=== PATIENT | male | born 1970 | race American Indian/Alaskan Native ===

== ENCOUNTER 2016-11-11 17:22 | Emergency (ER) | payer SELFPAY ==
[2016-11-11 18:34] LABS: Anion Gap 19 mmol/L; Blood Urea Nitrogen 11 mg/dL (9-20); Calcium 9.1 mg/dL (8.4-10.2); Carbon Dioxide 23 mmol/L (22-30); Chloride 100.7 mmol/L (98-107); Glucose 103 mg/dL (75-100); Potassium 4.2 mmol/L (3.6-5.0); Sodium 138 mmol/L (137-145)
[2016-11-11 18:38] LABS: Basophils % (Auto) 1.3 % (0.0-1.8); Eosinophils % (Auto) 13.8 % (0.0-4.3); Hematocrit 51.7 % (35.5-45.6); Hemoglobin 16.8 gm/dl (11.8-15.2); Mean Corpuscular HGB Conc 33 % (32-34); Mean Corpuscular Hemoglobin 30 pg (28-32); Mean Corpuscular Volume 93 fl (84-94); Platelet Count 244 K/mm3 (140-440); Red Blood Count 5.55 M/mm3 (3.65-5.03); Red Cell Distribution Width 14.3 % (13.2-15.2); White Blood Count 8.2 K/mm3 (4.5-11.0)
[2016-11-11] MEDS ORDERED: DUONEB 0.5 MG-3 MG/3 ML SOLN IH ONE (22:04)
--- NOTE | 2016-11-11 22:55 | Emergency Department Report ---
ED Shortness of Breath HPI - General Chief Complaint: Dyspnea/Respdistress Stated Complaint: VIKKI Time Seen by Provider: 11/11/16 22:47 Source: patient, RN notes reviewed, old records reviewed Mode of arrival: Ambulatory Limitations: No Limitations - History of Present Illness Initial Comments: This is a 46-year-old male. He is previously unknown to me. He does not have a primary care doctor. He has no chronic medical conditions. He no longer consumes tobacco. He presents to the ER complaining of shortness of breath. Shortness of breath started on Wednesday. It increases with physical exertion. Positive cough with mucus. No chest pain. No leg pain. No leg swelling. Works as a long-distance team truck driver. No history of hematemesis, bright red blood per rectum, or intracranial hemorrhage. Patient admits to left arm twitching and cramping, but denies severe pain. MD Complaint: shortness of breath, cough -: Gradual Severity: moderate Consistency: intermittent Improves With: rest Worsens With: exertion Context: recent URI Associated Symptoms: cough - Related Data Previous Rx's Medication Instructions Recorded Last Taken Type Albuterol Sulfate [Proair 90 mcg IH Q4HR PRN #2 aer.pow.ba 11/11/16 Unknown Rx Respiclick] predniSONE [Deltasone] 40 mg PO QDAY #8 tab 11/11/16 Unknown Rx Ipratropium [facility] [Atrovent Hfa] 12.9 gm IH Q4HR #2 hfa.aer.ad 11/12/16 Unknown Rx Allergies Allergy/AdvReac Type Severity Reaction Status Date / Time penicillin Allergy Swelling Verified 11/11/16 17:38 ED Review of Systems ROS: Stated complaint: VIKKI Other details as noted in HPI Constitutional: denies: malaise Eyes: denies: vision change Respiratory: shortness of breath Cardiovascular: dyspnea on exertion Gastrointestinal: denies: vomiting Genitourinary: denies: dysuria Musculoskeletal: denies: back pain Skin: denies: lesions Neurological: denies: headache Psychiatric: denies: anxiety ED Past Medical Hx - Past Medical History Hx COPD: Yes - Surgical History Past Surgical History?: No - Social History Smoking Status: Former Smoker Substance Use Type: Alcohol - Medications Home Medications: Home Medications Medication Instructions Recorded Confirmed Last Taken Type Albuterol Sulfate [Proair 90 mcg IH Q4HR PRN #2 aer.pow.ba 11/11/16 Unknown Rx Respiclick] predniSONE [Deltasone] 40 mg PO QDAY #8 tab 11/11/16 Unknown Rx Ipratropium [facility] [Atrovent Hfa] 12.9 gm IH Q4HR #2 hfa.aer.ad 11/12/16 Unknown Rx ED Physical Exam - General Limitations: No Limitations General appearance: alert, in no apparent distress - Head Head exam: Present: atraumatic, normocephalic - Eye Eye exam: Present: normal appearance, PERRL, EOMI. Absent: nystagmus - ENT ENT exam: Present: normal exam, normal orophraynx, mucous membranes moist, normal external ear exam - Neck Neck exam: Present: normal inspection, full ROM. Absent: tenderness, meningismus - Respiratory Respiratory exam: Present: normal lung sounds bilaterally. Absent: respiratory distress, wheezes, rales, rhonchi, stridor, chest wall tenderness - Cardiovascular Cardiovascular Exam: Present: regular rate, normal rhythm, normal heart sounds. Absent: bradycardia, tachycardia, irregular rhythm, systolic murmur, diastolic murmur, rubs, gallop - GI/Abdominal GI/Abdominal exam: Present: soft, normal bowel sounds. Absent: distended, tenderness, guarding, rebound, rigid, pulsatile mass - Rectal Rectal exam: Present: deferred - Extremities Exam Extremities exam: Present: normal inspection, full ROM, normal capillary refill. Absent: tenderness, pedal edema, joint swelling, calf tenderness - Back Exam Back exam: Present: normal inspection, full ROM. Absent: tenderness, CVA tenderness (R), CVA tenderness (L), muscle spasm, paraspinal tenderness, vertebral tenderness - Neurological Exam Neurological exam: Present: alert, oriented X3, normal gait, other (Extraocular movements intact. Tongue midline. No facial droop. Facial sensation intact to light touch in the V1, V2, V3 distribution bilaterally. 5 and 5 strength in 4 extremities.. Sensation is intact to light touch in 4 extremities.). Absent : motor sensory deficit - Psychiatric Psychiatric exam: Present: normal affect, normal mood - Skin Skin exam: Present: warm, dry, intact, normal color. Absent: rash ED Course Vital Signs 11/11/16 11/11/16 11/11/16 17:35 21:55 22:15 Temperature 98.5 F Pulse Rate 79 86 Pulse Rate [ 78 Anterior Bilateral Throughout] Pulse Rate [ 78 Posterior Bilateral Throughout] Respiratory 20 20 Rate Respiratory 20 Rate [Anterior Bilateral Throughout] Respiratory 20 Rate [Posterior Bilateral Throughout] Blood Pressure 156/100 182/106 Blood Pressure [Right] O2 Sat by Pulse 95 96 Oximetry 11/11/16 11/11/16 11/11/16 22:28 22:48 22:49 Temperature 98.3 F Pulse Rate 70 Pulse Rate [ 77 Anterior Bilateral Throughout] Pulse Rate [ 77 Posterior Bilateral Throughout] Respiratory 22 Rate Respiratory 20 Rate [Anterior Bilateral Throughout] Respiratory 20 Rate [Posterior Bilateral Throughout] Blood Pressure Blood Pressure 183/93 [Right] O2 Sat by Pulse 95 96 Oximetry 11/12/16 11/12/16 00:00 00:20 Temperature 97.9 F 98.7 F Pulse Rate 82 89 Pulse Rate [ Anterior Bilateral Throughout] Pulse Rate [ Posterior Bilateral Throughout] Respiratory 18 18 Rate Respiratory Rate [Anterior Bilateral Throughout] Respiratory Rate [Posterior Bilateral Throughout] Blood Pressure Blood Pressure 157/93 157/79 [Right] O2 Sat by Pulse 99 99 Oximetry - Reevaluation(s) Reevaluation #1: 11/11/16 23:45 Differential diagnosis: Bronchitis, asthma, pneumonia, pulmonary embolus Assessment and plan: 46-year-old male with shortness of breath since Wednesday. He is not wheezing on my examination. She is a nurse and respiratory therapist documented that the patient was wheezing. He is given nebulizer treatment prior to my evaluation. He is a long-distance team truck driver. Given this, a d-dimer will be sent to risk stratify the patient for pulmonary embolus. However, he is perc negative, and given clinical history of cough and documented wheezing, most likely has bronchitis. He has no chest pain, I highly doubt acute coronary syndrome, a troponin was sent, and was negative. As per the [employer] clinical policy, myocardial infarction may be excluded with 1 set of troponins if symptoms have been present for greater than 8 hours. His EKG does demonstrate poor R-wave progression, this is morphologically unchanged from her prior EKG. The patient to be low risk by MALVIN score, low risk by Heart score, he can follow up with a primary care doctor or spring fitter helper for his abnormal EKG which is chronic since May 2015 11/11/16 23:48 Reevaluation #2: 11/11/16 23:57 Troponins are negative 2. The patient is able to ambulate without significant desaturation. A repeat EKG is morphologically unremarkable and unchanged from prior. He will be discharged with albuterol. He is instructed to follow-up with either outpatient primary care or cardiology. He will discharge at this time. Return precautions are extensively reviewed. D-dimer is negative as well. ED Medical Decision Making - Lab Data Result diagrams: 11/11/16 18:00 11/11/16 18:00 - EKG Data -: EKG Interpreted by Me EKG shows normal: sinus rhythm, axis, intervals Rate: normal - EKG Data When compared to previous EKG there are: no significant change Interpretation: unchanged when compared t 11/11/16 23:48 normal sinus, 73 bpm, normal intervals, normal axis, poor R-wave progression, appears unchanged from prior to prior EKG from 05/07/2015. Critical care attestation.: If time is entered above; I have spent that time in minutes in the direct care of this critically ill patient, excluding procedure time. ED Disposition Clinical Impression: History of wheezing Disposition: DISCHARGED TO HOME OR SELFCARE Is pt being admited?: No Does the pt Need Aspirin: No Condition: Good Instructions: Acute Bronchitis (ED), Hypertension (ED) Additional Instructions: Take the medications as directed. Follow up with a primary care doctor or spring fitter helper within the next week. EKG demonstrated nonspecific abnormalities, these are chronic and have been present since 2014. Dr. Nguyen is a local primary care doctor. Doctor's Kay/ Manohar are local hearing instrument specialist. Blood pressure was very elevated in the emergency department. This should be followed up by a primary care doctor or spring fitter helper within the recommended timeframe. Long- term complications of hypertension/elevated blood pressure includes stroke, heart attack, disability, , paralysis, permanent loss of quality of life. Return to the ER right away with fevers or chills, chest pain, no different shortness of breath, intractable nausea or vomiting, inability to tolerate liquid feeds. Prescriptions: Albuterol Sulfate [Proair Respiclick] 90 mcg IH Q4HR PRN #2 aer.pow.ba PRN Reason: Wheezing Ipratropium Endeavor [Atrovent Hfa] 12.9 gm IH Q4HR #2 hfa.aer.ad predniSONE [Deltasone] 40 mg PO QDAY #8 tab Referrals: PRIMARY CARE, [Primary Care Provider] - 3-5 Days ANDER NGUYEN MD [Staff Physician] - 3-5 Days FRANK HINDS MD [Staff Physician] - 3-5 Days ALEJANDRA TRIVEDI MD [Staff Physician] - 3-5 Days
[2016-11-11 23:38] LABS: INR 1.05 (0.87-1.13)
[2016-11-11 23:39] LABS: Partial Thromboplastin Time 27.7 Sec. (24.2-36.6)
[2016-11-11] MEDS ORDERED: DELTASONE PO ONE (23:59)
[2016-11-12 00:47] VITALS: BP 157/79
--- NOTE | 2016-11-12 08:21 | XRay Report ---
Chest 2 views. Findings: The heart and pulmonary vessels are normal. The lungs are clear. There is no pleural fluid. There are multiple old rib fractures in the right lower thoracic cage. No acute rib fractures are seen. Impression: No acute findings.
== END 2016-11-12 00:47 | disposition home or self-care (01) ==
LOC: ED 17:22
DX: R06.02 Shortness of breath (principal); R06.2 Wheezing; R05 Cough; J44.9 Chronic obstructive pulmonary disease, unspecified
CPT/HCPCS: 36415; 71020; 80048; 84484; 85025; 85379; 85610; 85730; 93005; 93010; 94640; 99284

== ENCOUNTER 2019-10-31 11:10 | Emergency (ER) | payer SELFPAY ==
--- NOTE | 2019-10-31 12:56 | Event Note ---
ED Screening Note Date of service: 10/31/19 Time: 12:54 ED Screening Note: 49 y o male with no pmh presents with worsening sob x 1 week with no relief productive coughing up phlegm non smoker no COPD/ asthma This initial assessment/diagnostic orders/clinical plan/treatment(s) is/are subject to change based on patients health status, clinical progression and re- assessment by fellow clinical providers in the ED. Further treatment and workup at subsequent clinical providers discretion. Patient/guardian urged not to elope from the ED as their condition may be serious if not clinically assessed and managed. Initial orders include: cxr, acc eval
--- NOTE | 2019-10-31 13:22 | XRay Report ---
CHEST 2 VIEWS INDICATION: prod cough. COMPARISON: Chest x-ray from 11/11/2016 FINDINGS: Support devices: None. Heart: Within normal limits. Lungs/pleura: No acute air space or interstitial disease. No pneumothorax. Additional findings: None. IMPRESSION: 1. No acute findings. Signer Name: Teo Gandhi MD Signed: 10/31/2019 1:18 PM Workstation Name: [id number]
[2019-10-31] MEDS ORDERED: IPRATROPIUM 0.02% NEBU 2.5 ML IH ONE (16:07)
[2019-10-31] MEDS ORDERED: dexAMETHasone 20 MG/5 ML VIAL IM ONE (16:07)
[2019-10-31] MEDS ORDERED: ALBUTEROL 2.5 MG/3 ML NEBU IH ONE (16:07)
--- NOTE | 2019-10-31 16:39 | Emergency Department Report ---
ED Shortness of Breath HPI - General Chief Complaint: Dyspnea/Respdistress Stated Complaint: VIKKI Time Seen by Provider: 10/31/19 15:36 Source: patient Mode of arrival: Ambulatory Limitations: No Limitations - History of Present Illness Initial Comments: This is a 49-year-old male nontoxic, well nourished in appearance, no acute signs of distress presents to the ED with c/o of productive cough, shortness of breathe, rhinorrhea, nasal congestion x2 weeks. Patient describes productive cough as yellow mucus production. Patient denies any sick contacts. Patient denies any recent travels, long car, recent hospital stays. Patient denies any calf pain or calf tenderness. Patient denies any chest pain, fever, chills, nausea, vomiting, hemoptysis, numbness, tingling, headache or stiff neck. Allergies includes PCN. Patient stated has history of similar episodes and develops this condition during bronchitis. MD Complaint: shortness of breath, cough -: week(s) (2) Severity: mild Pain Scale: 0 Consistency: constant Improves With: nothing Worsens With: nothing Associated Symptoms: cough, sputum production - Related Data Home Oxygen Therapy: No Previous Rx's Medication Instructions Recorded Last Taken Type Albuterol Sulfate [Proair 90 mcg IH Q4HR PRN #2 aer.pow.ba 11/11/16 Unknown Rx Respiclick] predniSONE [Deltasone] 40 mg PO QDAY #8 tab 11/11/16 Unknown Rx Ipratropium [facility] [Atrovent Hfa] 12.9 gm IH Q4HR #2 hfa.aer.ad 11/12/16 Unknown Rx Albuterol INH(or & Nicu Only) 2 puff IH QID PRN #8.5 gram 10/31/19 Unknown Rx [ProAir HFA Inhaler] Azithromycin [Zithromax Z-JAZMYNE] 250 mg PO DAILY #6 tablet 10/31/19 Unknown Rx Prednisone [predniSONE 10 mg 10 mg PO .TAPER #1 tab.ds.pk 10/31/19 Unknown Rx (6-Day Pack, 21 Tabs)] Allergies Allergy/AdvReac Type Severity Reaction Status Date / Time penicillin Allergy Swelling Verified 11/11/16 17:38 ED Review of Systems ROS: Stated complaint: VIKKI Other details as noted in HPI Constitutional: denies: chills, fever Eyes: denies: eye pain, eye discharge, vision change ENT: congestion. denies: ear pain, throat pain Respiratory: shortness of breath, wheezing Cardiovascular: denies: chest pain, palpitations Endocrine: no symptoms reported Gastrointestinal: denies: abdominal pain, nausea, diarrhea Genitourinary: denies: urgency, dysuria Musculoskeletal: denies: back pain, joint swelling, arthralgia Skin: denies: rash, lesions Neurological: denies: headache, weakness, paresthesias Psychiatric: denies: anxiety, depression Hematological/Lymphatic: denies: easy bleeding, easy bruising ED Past Medical Hx - Past Medical History Previous Medical History?: Yes Hx COPD: No (pt states i do not have COPD) - Surgical History Past Surgical History?: No - Social History Smoking Status: Former Smoker Substance Use Type: None - Medications Home Medications: Home Medications Medication Instructions Recorded Confirmed Last Taken Type Albuterol Sulfate [Proair 90 mcg IH Q4HR PRN #2 aer.pow.ba 11/11/16 Unknown Rx Respiclick] predniSONE [Deltasone] 40 mg PO QDAY #8 tab 11/11/16 Unknown Rx Ipratropium [facility] [Atrovent Hfa] 12.9 gm IH Q4HR #2 hfa.aer.ad 11/12/16 Unknown Rx Albuterol INH(or & Nicu Only) 2 puff IH QID PRN #8.5 gram 10/31/19 Unknown Rx [ProAir HFA Inhaler] Azithromycin [Zithromax Z-JAZMYNE] 250 mg PO DAILY #6 tablet 10/31/19 Unknown Rx Prednisone [predniSONE 10 mg 10 mg PO .TAPER #1 tab.ds.pk 10/31/19 Unknown Rx (6-Day Pack, 21 Tabs)] ED Physical Exam - General Limitations: No Limitations General appearance: alert, in no apparent distress - Head Head exam: Present: atraumatic, normocephalic - Eye Eye exam: Present: normal appearance - Neck Neck exam: Present: normal inspection, full ROM. Absent: tenderness, meningismus, lymphadenopathy - Respiratory Respiratory exam: Present: wheezes. Absent: respiratory distress, rales, rhonchi, stridor, chest wall tenderness, accessory muscle use, decreased breath sounds, prolonged expiratory - Cardiovascular Cardiovascular Exam: Present: regular rate, normal rhythm, normal heart sounds. Absent: bradycardia, tachycardia, irregular rhythm, systolic murmur, diastolic murmur, rubs, gallop - Extremities Exam Extremities exam: Present: normal inspection, full ROM - Back Exam Back exam: Present: normal inspection, full ROM. Absent: tenderness, CVA tenderness (R), CVA tenderness (L), muscle spasm, paraspinal tenderness, vertebral tenderness, rash noted - Neurological Exam Neurological exam: Present: alert, oriented X3, normal gait - Psychiatric Psychiatric exam: Present: normal affect, normal mood - Skin Skin exam: Present: warm, dry, intact, normal color. Absent: rash ED Course Vital Signs 10/31/19 10/31/19 10/31/19 11:28 12:53 18:04 Temperature 98.0 F 98 F Pulse Rate 78 67 68 Pulse Rate [ Posterior Bilateral Throughout] Respiratory 20 22 18 Rate Respiratory Rate [Posterior Bilateral Throughout] Blood Pressure 163/87 163/87 Blood Pressure 177/94 [Right] O2 Sat by Pulse 94 93 98 Oximetry 10/31/19 18:16 Temperature Pulse Rate Pulse Rate [ 69 Posterior Bilateral Throughout] Respiratory Rate Respiratory 22 Rate [Posterior Bilateral Throughout] Blood Pressure Blood Pressure [Right] O2 Sat by Pulse Oximetry - Reevaluation(s) Reevaluation #1: 10/31/19 16:41 Patient is speaking in full sentences with no signs of distress noted. ED Medical Decision Making - Medical Decision Making This is a 49-year-old male that presents with bronchitis. Patient is stable and was examined by me. Chest x-ray has been obtained and dictated by the radiologist within normal limits. Patient is notified of the x-ray report with no questions noted by the patient. Patient did receive breathing treatment and steroids in the ED which patient the symptoms has resolved and subsided. Posttreatment and there is no wheezing upon auscultation. Vital signs are stable at discharge. Pulse ox increased prior to discharge and I had patient walk and pulse ox stated within normal limits. Patient is discharged with albuterol and prednisone. MALVIN and HEART score 0 pints. Wells criteria for DVT/SVT/PE 0 points. Medical records has been reviewed and shows that had similar symptoms 2014 and 2016. Patient was referred to Follow-up with a primary care doctor in 3-5 days or if symptoms worsen and continue return to emergency room as soon as possible. At time of discharge, the patient does not seem toxic or ill in appearance. No acute signs of distress noted. Patient agrees to discharge treatment plan of care. No further questions noted by the patient. This chart is dictated with using [employer] Dictation Program - Differential Diagnosis Asthma, bronchitis, pneumonia, pulmonary embolism, COPD Critical care attestation.: If time is entered above; I have spent that time in minutes in the direct care of this critically ill patient, excluding procedure time. ED Disposition Clinical Impression: Bronchitis Disposition: DC-01 TO HOME OR SELFCARE Is pt being admited?: No Does the pt Need Aspirin: No Condition: Stable Instructions: Acute Bronchitis (ED) Additional Instructions: Follow-up with a primary care doctor in 3-5 days or if symptoms worsen and continue return to emergency room as soon as possible. Prescriptions: Prednisone [predniSONE 10 mg (6-Day Pack, 21 Tabs)] 10 mg PO .TAPER #1 tab.ds.pk Albuterol INH(or & Nicu Only) [ProAir HFA Inhaler] 2 puff IH QID PRN #8.5 gram PRN Reason: Shortness Of Breath Azithromycin [Zithromax Z-JAZMYNE] 250 mg PO DAILY #6 tablet Referrals: PRIMARY CAREMD [Primary Care Provider] - 3-5 Days BLAIR DARDEN MD [Staff Physician] - 3-5 Days [facility] [Outside] - 3-5 Days Forms: Work/School Release Form(ED)
[2019-10-31 18:05] VITALS: BP 177/94
== END 2019-10-31 18:51 | disposition home or self-care (01) ==
LOC: ED 11:10
DX: J40 Bronchitis, not specified as acute or chronic (principal); Z87.891 Personal history of nicotine dependence; Z79.899 Other long term (current) drug therapy; Z88.0 Allergy status to penicillin
CPT/HCPCS: 71046; 94644; 96372; 99283; J1100

== ENCOUNTER 2020-09-04 06:21 | Emergency (ER) | payer OTHER ==
[2020-09-04 07:23] VITALS: BP 178/98
[2020-09-04 08:59] LABS: Basophils # (Auto) 0.1 K/mm3 (0.0-0.1); Basophils % (Auto) 1.2 % (0.0-1.8); Eosinophils # (Auto) 0.8 K/mm3 (0.0-0.4); Eosinophils % (Auto) 10.5 % (0.0-4.3); Hematocrit 43.8 % (35.5-45.6); Hemoglobin 15.3 gm/dl (11.8-15.2); Lymphocytes # (Auto) 2.6 K/mm3 (1.2-5.4); Lymphocytes % (Auto) 35.3 % (13.4-35.0); Mean Corpuscular HGB Conc 35 % (32-34); Mean Corpuscular Volume 93 fl (84-94); Monocytes # (Auto) 0.7 K/mm3 (0.0-0.8); Platelet Count 254 K/mm3 (140-440); Red Cell Distribution Width 14.4 % (13.2-15.2)
--- NOTE | 2020-09-04 09:23 | XRay Report ---
CHEST 2 VIEWS INDICATION: SOB. COMPARISON: 10/31/2019 FINDINGS: Support devices: None. Heart: Within normal limits. Lungs/pleura: No acute air space or interstitial disease. No pneumothorax. Additional findings: Chronic right rib deformities are noted. IMPRESSION: No acute findings. Signer Name: Jonatan Shields Jr, MD Signed: 09/04/2020 9:19 AM Workstation Name: [id number]
[2020-09-04 09:25] LABS: Alanine Aminotransferase 24 units/L (7-56); Albumin 3.9 g/dL (3.9-5); BUN/Creatinine Ratio 9; Blood Urea Nitrogen 8 mg/dL (9-20); Hemolysis Index 4
[2020-09-04] MEDS ORDERED: ALBUTEROL 2.5 MG/3 ML NEBU IH ONE (11:46)
[2020-09-04] MEDS ORDERED: dexAMETHasone 20 MG/5 ML VIAL IM ONE (11:46)
[2020-09-04] MEDS ORDERED: IPRATROPIUM 0.02% NEBU 2.5 ML IH ONE (11:46)
--- NOTE | 2020-09-04 13:01 | Emergency Department Report ---
- General Chief Complaint: Upper Respiratory Infection Stated Complaint: COUGH Time Seen by Provider: 09/04/20 11:46 Source: patient Mode of arrival: Ambulatory Limitations: No Limitations - History of Present Illness Initial Comments: Patient is a 49-year-old male presents emergency room with complaints of a productive cough that began 8 days ago. He has associated green mucus production. He states he also has shortness of breath, wheezing, chest tightness. He denies any fever, vomiting, diarrhea, leg swelling. He denies any sick contacts or recent travel. He states he is a former smoker and quit 2 years ago. He has a past medical history of asthma. Allergy to penicillin. He states he uses Dulera for his asthma but reports that he ran out. He does not have a rescue inhaler of albuterol at home. - Related Data Previous Rx's Medication Instructions Recorded Last Taken Type Albuterol Sulfate [Proair 90 mcg IH Q4HR PRN #2 aer.pow.ba 11/11/16 Unknown Rx Respiclick] predniSONE [Deltasone] 40 mg PO QDAY #8 tab 11/11/16 Unknown Rx Ipratropium Bronson [Atrovent Hfa] 12.9 gm IH Q4HR #2 hfa.aer.ad 11/12/16 Unknown Rx Albuterol Mdi (or & Nicu Only) 2 puff IH QID PRN #8.5 gram 10/31/19 Unknown Rx [ProAir HFA Inhaler] Azithromycin [Zithromax Z-JAZMYNE] 250 mg PO DAILY #6 tablet 10/31/19 Unknown Rx ALBUTEROL NEB's [Proventil 0.083% 2.5 mg IH TID PRN #1 box 09/04/20 Unknown Rx NEBS] Albuterol Sulfate [Proventil Hfa] 6.7 gm IH TID PRN #1 hfa.aer.ad 09/04/20 Unknown Rx Azithromycin [Zithromax TAB] 250 mg PO QDAY 5 Days #6 tablet 09/04/20 Unknown Rx Mometasone/Formoterol [Dulera 100 2 inhalation IH BID #1 hfa.aer.ad 09/04/20 Unknown Rx Mcg-5 Mcg Inhaler] Prednisone [predniSONE 10 mg 10 mg PO .TAPER #1 tab.ds.pk 09/04/20 Unknown Rx (6-Day Pack, 21 Tabs)] Allergies Allergy/AdvReac Type Severity Reaction Status Date / Time penicillin Allergy Swelling Verified 09/04/20 07:19 ED Review of Systems ROS: Stated complaint: COUGH Other details as noted in HPI Comment: All other systems reviewed and negative ED Past Medical Hx - Past Medical History Hx Asthma: Yes Hx COPD: No (pt states i do not have COPD) - Surgical History Past Surgical History?: No - Social History Smoking Status: Never Smoker Substance Use Type: None - Medications Home Medications: Home Medications Medication Instructions Recorded Confirmed Last Taken Type Albuterol Sulfate [Proair 90 mcg IH Q4HR PRN #2 aer.pow.ba 11/11/16 Unknown Rx Respiclick] predniSONE [Deltasone] 40 mg PO QDAY #8 tab 11/11/16 Unknown Rx Ipratropium Bronson [Atrovent Hfa] 12.9 gm IH Q4HR #2 hfa.aer.ad 11/12/16 Unknown Rx Albuterol Mdi (or & Nicu Only) 2 puff IH QID PRN #8.5 gram 10/31/19 Unknown Rx [ProAir HFA Inhaler] Azithromycin [Zithromax Z-JAZMYNE] 250 mg PO DAILY #6 tablet 10/31/19 Unknown Rx ALBUTEROL NEB's [Proventil 0.083% 2.5 mg IH TID PRN #1 box 09/04/20 Unknown Rx NEBS] Albuterol Sulfate [Proventil Hfa] 6.7 gm IH TID PRN #1 hfa.aer.ad 09/04/20 Unknown Rx Azithromycin [Zithromax TAB] 250 mg PO QDAY 5 Days #6 tablet 09/04/20 Unknown Rx Mometasone/Formoterol [Dulera 100 2 inhalation IH BID #1 hfa.aer.ad 09/04/20 Unknown Rx Mcg-5 Mcg Inhaler] Prednisone [predniSONE 10 mg 10 mg PO .TAPER #1 tab.ds.pk 09/04/20 Unknown Rx (6-Day Pack, 21 Tabs)] ED Physical Exam - General Limitations: No Limitations General appearance: alert, in no apparent distress - Head Head exam: Present: atraumatic, normocephalic - Eye Eye exam: Present: normal appearance - ENT ENT exam: Present: mucous membranes moist - Respiratory Respiratory exam: Present: wheezes (expiratory bilaterally), prolonged expiratory. Absent: respiratory distress, rales, rhonchi, stridor, chest wall tenderness, accessory muscle use - Cardiovascular Cardiovascular Exam: Present: regular rate, normal rhythm, normal heart sounds. Absent: systolic murmur, diastolic murmur, rubs, gallop - Neurological Exam Neurological exam: Present: alert, oriented X3 - Psychiatric Psychiatric exam: Present: normal affect, normal mood - Skin Skin exam: Present: warm, dry, intact ED Course Vital Signs 09/04/20 07:22 Temperature 97.6 F Pulse Rate 70 Respiratory 22 Rate Blood Pressure 178/98 [Right] O2 Sat by Pulse 95 Oximetry ED Medical Decision Making - Lab Data Result diagrams: 09/04/20 08:44 09/04/20 08:44 Lab Results 09/04/20 09/04/20 Range/Units 08:44 08:44 WBC 7.2 (4.5-11.0) K/mm3 RBC 4.70 (3.65-5.03) M/mm3 Hgb 15.3 H (11.8-15.2) gm/dl Hct 43.8 (35.5-45.6) % MCV 93 (84-94) fl MCH 33 H (28-32) pg MCHC 35 H (32-34) % RDW 14.4 (13.2-15.2) % Plt Count 254 (140-440) K/mm3 Lymph % (Auto) 35.3 H (13.4-35.0) % [place] % (Auto) 10.0 H (0.0-7.3) % Eos % (Auto) 10.5 H (0.0-4.3) % Baso % (Auto) 1.2 (0.0-1.8) % Lymph # (Auto) 2.6 (1.2-5.4) K/mm3 [place] # (Auto) 0.7 (0.0-0.8) K/mm3 Eos # (Auto) 0.8 H (0.0-0.4) K/mm3 Baso # (Auto) 0.1 (0.0-0.1) K/mm3 Seg Neutrophils % 43.0 (40.0-70.0) % Seg Neutrophils # 3.1 (1.8-7.7) K/mm3 Sodium 138 (137-145) mmol/L Potassium 4.1 (3.6-5.0) mmol/L Chloride 102.9 (98-107) mmol/L Carbon Dioxide 28 (22-30) mmol/L Anion Gap 11 mmol/L BUN 8 L (9-20) mg/dL Creatinine 0.9 (0.8-1.3) mg/dL Estimated GFR > 60 ml/min BUN/Creatinine Ratio 9 % Glucose 112 H (75-100) mg/dL Calcium 9.0 (8.4-10.2) mg/dL Total Bilirubin 0.60 (0.1-1.2) mg/dL AST 16 (5-40) units/L ALT 24 (7-56) units/L Alkaline Phosphatase 64 (35-129) units/L Troponin T < 0.010 (0.00-0.029) ng/mL NT-Pro-B Natriuret Pep < 5 (0-900) pg/mL Total Protein 7.2 (6.3-8.2) g/dL Albumin 3.9 (3.9-5) g/dL Albumin/Globulin Ratio 1.2 % Vital Signs 09/04/20 07:22 Temperature 97.6 F Pulse Rate 70 Respiratory 22 Rate Blood Pressure 178/98 [Right] O2 Sat by Pulse 95 Oximetry - EKG Data EKG shows normal: sinus rhythm, intervals, QRS complexes Rate: normal - EKG Data 09/04/20 17:[address]-T changes no STEMI - Radiology Data Radiology results: report reviewed Ordering Physician: DANIELLE AGUIRRE Date of Service: 09/04/20 Procedure(s): XR chest routine 2V Accession Number(s): [id number] cc: DANIELLE AGUIRRE Fluoro Time In Minutes: CHEST 2 VIEWS INDICATION: SOB. COMPARISON: 10/31/2019 FINDINGS: Support devices: None. Heart: Within normal limits. Lungs/pleura: No acute air space or interstitial disease. No pneumothorax. Additional findings: Chronic right rib deformities are noted. IMPRESSION: No acute findings. Signer Name: Jonatan Sands Jr, MD Signed: 09/04/2020 9:19 AM Workstation Name: [id number] Transcribed By: TTR Dictated By: JONATAN SANDS JR, MD Electronically Authenticated By: JONATAN SANDS JR, MD Signed Date/Time: 09/04/20 0919 DD/ 7 TD/TT: - Medical Decision Making Patient is a 49-year-old male presents emergency room with complaints of a productive cough that began 8 days ago. He has associated green mucus production. He states he also has shortness of breath, wheezing, chest tightness. He denies any fever, vomiting, diarrhea, leg swelling. He denies any sick contacts or recent travel. He states he is a former smoker and quit 2 years ago. He has a past medical history of asthma. Allergy to penicillin. He states he uses Dulera for his asthma but reports that he ran out. He does not have a rescue inhaler of albuterol at home. Vitals are stable. On exam patient has expiratory wheezing, prolonged expiratory phase, no respiratory distress or accessory muscle use. ordered placed prior to my examination. CXR: No acute findings. Labs are stable. EKG: PACs LAD, non specific ST-T changes, no STEMI. Patient given continuous neb treatment and steroids and patient was feeling significantly better and ready to go home. On reexamination wheezing had completely resolved. Patient will be treated for acute bronchitis and given his home medications. Advised patient Please use medication as prescribed. Follow-up with a primary care doctor. Return to emergency room for any new or worsening symptoms. Critical care attestation.: If time is entered above; I have spent that time in minutes in the direct care of this critically ill patient, excluding procedure time. ED Disposition Clinical Impression: Acute bronchitis Qualifiers: Bronchitis organism: unspecified organism Qualified Code(s): J20.9 - Acute bronchitis, unspecified Asthma exacerbation Qualifiers: Asthma severity: unspecified severity Asthma persistence: unspecified Qualified Code(s): J45.901 - Unspecified asthma with (acute) exacerbation Disposition: DC-01 TO HOME OR SELFCARE Is pt being admited?: No Does the pt Need Aspirin: No Condition: Stable Instructions: Asthma, Adult, Acute Bronchitis, Adult, [id number], Acute Bronchitis (ED) Additional Instructions: Please use medication as prescribed. Follow-up with a primary care doctor. Return to emergency room for any new or worsening symptoms. Prescriptions: Mometasone/Formoterol [Dulera 100 Mcg-5 Mcg Inhaler] 2 inhalation IH BID #1 hfa.aer.ad Prednisone [predniSONE 10 mg (6-Day Pack, 21 Tabs)] 10 mg PO .TAPER #1 tab.ds.pk ALBUTEROL NEB's [Proventil 0.083% NEBS] 2.5 mg IH TID PRN #1 box PRN Reason: Wheezing Albuterol Sulfate [Proventil Hfa] 6.7 gm IH TID PRN #1 hfa.aer.ad PRN Reason: Wheezing Azithromycin [Zithromax TAB] 250 mg PO QDAY 5 Days #6 tablet Referrals: PRIMARY CARE, [Primary Care Provider] - 2-3 Days Forms: Work/School Release Form(ED) Time of Disposition: 13:33 Print Language: URDU
== END 2020-09-04 14:12 | disposition home or self-care (01) ==
LOC: ED 06:21
DX: J20.9 Acute bronchitis, unspecified (principal); J45.901 Unspecified asthma with (acute) exacerbation; Z79.899 Other long term (current) drug therapy; Z88.0 Allergy status to penicillin
CPT/HCPCS: 36415; 71046; 80053; 83880; 84484; 85025; 93005; 94640; 96372; 99284; J1100